=== PATIENT | male | born 1955 | race Hispanic/Latino ===

== ENCOUNTER 2017-10-24 06:53 | Day surgery (SDC) | payer OTHER ==
[~2017-10-24] VITALS: Ht 170.2 cm; Wt 85.3 kg
[~2017-10-24 06:53] MED LIST: CLOBETASOL TP; FOLIC ACID; FURO40TA5 PO; LACT10SO PO; LEVO112T7 PO; MILK175T PO; NADO20TA12 PO; PANT40TA25 PO; RIFA550T PO; SENN-178 PO; SIMV5TAB6 PO; SODIUM CHLORIDE 0.9% 1000ML 1,000 ML IV ONE; SPIR100T5 PO; [UNRECOGNIZED DRUG - OTHER] PO
[2017-10-24 07:31] VITALS: BP 107/54
[2017-10-24] MEDS ORDERED: PROPOFOL 10 MG/ML 20ML VIAL IV ONE (08:43)
== END 2017-10-24 09:25 | disposition home or self-care (01) ==
LOC: DAH 06:53 → ENDO 06:53
PROVIDERS: ATTEND Internal Medicine
DX: K86.2 Cyst of pancreas (principal); K21.9 Gastro-esophageal reflux disease without esophagitis; R78.5 Finding of other psychotropic drug in blood; E03.9 Hypothyroidism, unspecified; J90 Pleural effusion, not elsewhere classified; R18.8 Other ascites; Z79.899 Other long term (current) drug therapy; E78.5 Hyperlipidemia, unspecified; Z68.29 Body mass index [BMI] 29.0-29.9, adult; J30.9 Allergic rhinitis, unspecified
CPT/HCPCS: 43237; A4606; J2704; J7030 ×2; 43231

== ENCOUNTER 2018-03-27 05:36 | Day surgery (SDC) | payer OTHER ==
[~2018-03-27] VITALS: Ht 170.2 cm; Wt 92.8 kg
[2018-03-27] VITALS (7 sets, daily range): BP systolic 98–105; BP diastolic 54–64
[~2018-03-27 05:36] MED LIST changes: -SODIUM CHLORIDE 0.9% 1000ML 1,000 ML IV ONE
[2018-03-27] MEDS ORDERED: SODIUM CHLORIDE 0.9% 1000ML 1,000 ML IV ONE (06:27)
[2018-03-27] MEDS ORDERED: PROPOFOL 10 MG/ML 20ML VIAL IV ONE (06:57)
== END 2018-03-27 07:55 | disposition home or self-care (01) ==
LOC: DAH 05:36 → ENDO 05:36
PROVIDERS: ATTEND Internal Medicine Gastroenterology
DX: K86.89 Other specified diseases of pancreas (principal); K29.50 Unspecified chronic gastritis without bleeding; K74.60 Unspecified cirrhosis of liver; E78.5 Hyperlipidemia, unspecified; E03.9 Hypothyroidism, unspecified; K21.9 Gastro-esophageal reflux disease without esophagitis; Z79.899 Other long term (current) drug therapy
CPT/HCPCS: 43259; A4606; J2704; J7030; 43231